=== PATIENT | female | born 1940 | race Caucasian/White ===

== ENCOUNTER 2018-10-08 08:14 | Emergency (ER) | payer MEDICARE, OTHER ==
[~2018-10-08] VITALS: Ht 167.6 cm; Wt 59.1 kg
[~2018-10-08 08:14] MED LIST: ASPI-817 PO; CALC1TAB80 PO; CITA10TA10 PO; LANT3I SC; LISI10TA2 PO; METF100010 PO; TRAM50TA2 PO
[2018-10-08 08:21] VITALS: Ht 167.6 cm; Wt 59.1 kg
[2018-10-08] MEDS ORDERED: BENZ-6 PO (10:00)
[2018-10-08] MEDS ORDERED: AZIT250T13 PO ×2 (10:00)
[2018-10-08 10:14] VITALS: BP 150/65; PULSE 63; RESP 18
--- NOTE | 2018-10-08 16:00 | ERD ---
ER Documentation Chief Complaint Chief Complaint Complains of a sore throat x 3 days HPI 78-year-old female presents with complaint of dry cough x1 week. Patient states to have started with a cough approximately 3 weeks ago, presented with her PCP 2 weeks ago was given a cough syrup which helped some but notes that the cough returned 1 week ago. Patient expresses concern at this time as she has been previously diagnosed with bronchitis and pneumonia last year. She denies any shortness of breath, chest pain, or wheezing. Patient notes a history of diabetes, hypertension, cholesterol. Denies any other chronic medical conditions. No other complaints at this time. ROS All systems reviewed and are negative except as per history of present illness. Medications Home Meds Active Scripts Benzonatate* (Tessalon Perle*) 100 Mg Capsule, 100 MG PO Q8H PRN for COUGH for 7 Days, #30 CAP Prov:ZAK ALVAREZ PA-C 10/08/18 Azithromycin* (Azithromycin*) 250 Mg Tablet, 500 MG PO ONCE, #1 TAB Prov:ZAK ALVAREZ PA-C 10/08/18 Azithromycin* (Azithromycin*) 250 Mg Tablet, 250 MG PO DAILY, #4 TAB Prov:ZAK ALVAREZ PA-C 10/08/18 Tramadol HCl (Tramadol HCl) 50 Mg Tablet, 50 MG PO Q6, #20 TAB Prov:ERI CORDON MD 12/04/15 Reported Medications Insulin Glargine* (Lantus*) 100 Unit/Ml Soln, 0 SC DAILY, #1 VIAL 12/04/15 Metformin Hcl* (Metformin Hcl*) 1,000 Mg Tablet, 1000 MG PO WITH BREAKFAST, #30 TAB 12/04/15 Citalopram Hydrobromide* (Celexa*) 10 Mg Tablet, 10 MG PO DAILY, #30 TAB 12/04/15 Lisinopril* (Lisinopril*) 10 Mg Tablet, 10 MG PO DAILY 03/16/13 Calcium Carbonate/Vitamin D3 (Oysco 500+D Tablet) 1 Tab Tablet, 1 TAB PO DAILY 03/16/13 Aspirin* (Aspirin* EC) 81 Mg Tablet.dr, 81 MG PO DAILY 03/16/13 Allergies Allergies: Coded Allergies: Penicillins (Verified Allergy, Unknown, RASH, 12/04/15) PMhx/Soc History of Surgery: Yes (abd hernia removal and hysterectomy +20 years ago ) Anesthesia Reaction: No Hx Neurological Disorder: No Hx Respiratory Disorders: No Hx Cardiac Disorders: No Hx Psychiatric Problems: No Hx Miscellaneous Medical Probl: Yes (DM type 2 ) Hx Alcohol Use: No Hx Substance Use: No Hx Tobacco Use: No Smoking Status: Never smoker Physical Exam Vitals Vital Signs Date Temp Pulse Resp B/P (MAP) Pulse Ox O2 O2 Flow FiO2 Time Delivery Rate 10/08/18 63 18 150/65 98 Room Air 10:14 (93) 10/08/18 97.8 66 20 165/72 99 08:21 (103) Physical Exam Const: No acute distress Head: Atraumatic Eyes: Normal Conjunctiva ENT: Normal External Ears, Nose and Mouth. Neck: Full range of motion. No meningismus. Resp: Clear to auscultation bilaterally. No wheezes, rales, rhonchi. Speaking full sentences. No accessory muscle use. No reproducible chest wall tenderness Cardio: Regular rate and rhythm, no murmurs. No chest wall tenderness. Skin: No petechiae or rashes Neur: Awake and alert. Moving all 4 extremities. Relating appropriately. Psych: Normal Mood and Affect Procedures/MDM PROCEDURE: XR Chest. FINDINGS: The heart is normal in size. Calcific atherosclerosis of the aorta. No evidence of pulmonary vascular congestion acute lung consolidation pleural effusions or pneumothorax. Interval development of a 5 mm nodular density in the lateral right mid lung demonstrated only on frontal imaging and not fully seen on lateral imaging. Interval follow up is recommended. Minimal dextrorotoscoliosis thoracolumbar spine. IMPRESSION: 1. No evidence of congestive heart failure or pneumonia. 2. Interval development of a 5 mm nodular density lateral right mid lung demonstrated on frontal imaging. An underlying pulmonary nodule should be considered. Recommend follow-up to assess for change. MDM: This is a very pleasant 78yo F who presents to the ED for evaluation of persistent cough. Vitals reviewed by me and pt was afebrile. XR imaging of chest unremarkable for PNA, however, incidental 5mm nodular density found. Counseled pt to follow-up with PCP for follow-up and possible repeat CXR in approx 2-3 months. Given pt non-toxic appearance, stable vitals, and unremarkable exam it was felt pt stable for outpatient management. Pt has a history of PNA previously, although CXR negative, pt has had persistent cough for multiple weeks and abx therapy deemed appropriate at this time. Pt will be discharged with Rx for z-pack and tessalon with close f/u with PCP. Pt counseled regarding ED return precautions and advised to return within 24-48 hours if symptoms persist or worsen despite use of abx and cough medicine. Pt expressed verbal understanding and agreement to treatment plan. All questions addressed and answered. Departure Diagnosis: Primary Impression: Upper respiratory infection Additional Impression: Cough Condition: Stable Patient Instructions: Preventing Common Respiratory Infections, Cough, Chronic, Uncertain Cause, (Adult) ZAK ALVAREZ PA-C October 08, 2018 16:00
== END 2018-10-08 10:15 | disposition home or self-care (01) ==
LOC: FTE 08:14
DX: J06.9 Acute upper respiratory infection, unspecified (principal); E11.9 Type 2 diabetes mellitus without complications; Z79.4 Long term (current) use of insulin; Z79.82 Long term (current) use of aspirin
CPT/HCPCS: 71046

== ENCOUNTER 2019-01-02 16:42 | Emergency (ER) | payer MEDICARE, OTHER ==
[~2019-01-02] VITALS: Ht 160 cm; Wt 59.2 kg
[~2019-01-02 16:42] MED LIST changes: +AZIT250T13 PO; +BENZ-6 PO
[2019-01-02 16:44] VITALS: Ht 160 cm; Wt 59.2 kg
[2019-01-02] MEDS ORDERED: SOD CHLORIDE 0.9% 1,000 ML IV STA (17:48)
--- NOTE | 2019-01-02 18:07 | ERD ---
ER Documentation Chief Complaint Chief Complaint dizziness and nausea, vomit x1 time today HPI Patient has a history of diabetes hypertension. She has been feeling weak since this morning. When she was in a apartment that did not have any AC. There is no triggers to make it worse. No headache. Had one episode of vomiting. Denies any shortness of breath, chest pain, diarrhea or dysuria. ROS All systems reviewed and are negative except as per history of present illness. Medications Home Meds Active Scripts Benzonatate* (Tessalon Perle*) 100 Mg Capsule, 100 MG PO Q8H PRN for COUGH for 7 Days, #30 CAP Prov:ZAK ALVAREZ PA-C 10/08/18 Azithromycin* (Azithromycin*) 250 Mg Tablet, 500 MG PO ONCE, #1 TAB Prov:ZAK ALVAREZ PA-C 10/08/18 Azithromycin* (Azithromycin*) 250 Mg Tablet, 250 MG PO DAILY, #4 TAB Prov:ZAK ALVAREZ PA-C 10/08/18 Tramadol HCl (Tramadol HCl) 50 Mg Tablet, 50 MG PO Q6, #20 TAB Prov:ERI CORDON MD 12/04/15 Reported Medications Insulin Glargine* (Lantus*) 100 Unit/Ml Soln, 0 SC DAILY, #1 VIAL 12/04/15 Metformin Hcl* (Metformin Hcl*) 1,000 Mg Tablet, 1000 MG PO WITH BREAKFAST, #30 TAB 12/04/15 Citalopram Hydrobromide* (Celexa*) 10 Mg Tablet, 10 MG PO DAILY, #30 TAB 12/04/15 Lisinopril* (Lisinopril*) 10 Mg Tablet, 10 MG PO DAILY 03/16/13 Calcium Carbonate/Vitamin D3 (Oysco 500+D Tablet) 1 Tab Tablet, 1 TAB PO DAILY 03/16/13 Aspirin* (Aspirin* EC) 81 Mg Tablet.dr, 81 MG PO DAILY 03/16/13 Allergies Allergies: Coded Allergies: Penicillins (Verified Allergy, Unknown, RASH, 12/04/15) PMhx/Soc History of Surgery: Yes (abd hernia removal and hysterectomy +20 years ago ) Anesthesia Reaction: No Hx Neurological Disorder: No Hx Respiratory Disorders: No Hx Cardiac Disorders: No Hx Psychiatric Problems: No Hx Miscellaneous Medical Probl: Yes (DM type 2 ) Hx Alcohol Use: No Hx Substance Use: No Hx Tobacco Use: No Physical Exam Vitals Vital Signs Date Temp Pulse Resp B/P (MAP) Pulse Ox O2 O2 Flow FiO2 Time Delivery Rate 01/02/19 98.7 84 16 154/57 98 Room Air 17:40 (89) 01/02/19 99.3 75 18 145/65 97 16:44 (91) Physical Exam Const: No acute distress Head: Atraumatic Eyes: Normal Conjunctiva ENT: Normal External Ears, Nose and Mouth. Neck: Full range of motion. No meningismus. Resp: Clear to auscultation bilaterally Cardio: Regular rate and rhythm, no murmurs Abd: Soft, non tender, non distended. Normal bowel sounds Skin: No petechiae or rashes Back: No midline or flank tenderness Ext: No cyanosis, or edema Neuro Exam Mental status: oriented, alert, lucid, cooperative, appropriate Cranial nerves: CN 2-12 intact Motor: 5+ UE and LE, flexors and extensors symmetric Sensation: grossly intact to find touch UE and LE symmetrically Cerebellar: normal FTN bilaterally. No tremor noted Gait: normal gait Tone: normal bulk and tone in upper and lower extremities. No atrophy noted. Psych: Normal Mood and Affect Result Diagram: 01/02/19 1747 01/02/19 1747 Results 24 hrs Laboratory Tests Test 01/02/19 17:47 White Blood Count 8.4 10^3/ul Red Blood Count 4.33 10^6/ul Hemoglobin 12.6 g/dl Hematocrit 38.3 % Mean Corpuscular Volume 88.5 fl Mean Corpuscular Hemoglobin 29.1 pg Mean Corpuscular Hemoglobin Concent 32.9 g/dl Red Cell Distribution Width 12.9 % Platelet Count 224 10^3/UL Mean Platelet Volume 10.3 fl Immature Granulocytes % 0.200 % Neutrophils % 70.3 % Lymphocytes % 21.1 % Monocytes % 6.8 % Eosinophils % 1.0 % Basophils % 0.6 % Nucleated Red Blood Cells % 0.0 /100WBC Immature Granulocytes # 0.020 10^3/ul Neutrophils # 5.9 10^3/ul Lymphocytes # 1.8 10^3/ul Monocytes # 0.6 10^3/ul Eosinophils # 0.1 10^3/ul Basophils # 0.1 10^3/ul Nucleated Red Blood Cells # 0.0 10^3/ul Sodium Level 139 mmol/L Potassium Level 4.3 mmol/L Chloride Level 101 mmol/L Carbon Dioxide Level 30 mmol/L Anion Gap 8 Blood Urea Nitrogen 16 mg/dl Creatinine 0.82 mg/dl Est Glomerular Filtrat Rate mL/min mL/min Glucose Level 225 mg/dl Calcium Level 10.0 mg/dl Troponin I < 0.012 ng/ml Current Medications Medications Dose Sig/Bhargav Start Time Status Last (Trade) Ordered Route PRN Stop Time Admin Dose Reason Admin Sodium 1,000 ml @ Q1H STAT 01/02/19 DC 01/02/19 Chloride 1,000 mls/hr IV 17:48 17:56 01/02/19 18:47 Procedures/MDM ECG Time: 1803 Ventricular Rate: 65 Rhythm: normal sinus rhythm. ST Segments: without evidence of depressions or elevations Intervals: without evidence of AV block, new BBB, long QT, Brugada No evidence of delta wave. Patient presented with feeling of weakness today. Labs unremarkable any acute pathology. Patient feels better after rehydration. Likely component of dehydration fatigue. Low suspicion for ACS, infection, stroke. Patient will be staying with her daughter close follow-up Departure Diagnosis: Primary Impression: Weakness Condition: Stable ERI ADAMS MD Jan 02, 2019 18:07
[2019-01-02 19:41] VITALS: BP 139/59; PULSE 78; RESP 19
== END 2019-01-02 19:46 | disposition home or self-care (01) ==
LOC: E/R 16:42
DX: R53.1 Weakness (principal); I10 Essential (primary) hypertension; E11.9 Type 2 diabetes mellitus without complications; Z79.4 Long term (current) use of insulin; Z79.82 Long term (current) use of aspirin
CPT/HCPCS: 36415; 71045; 80048; 84484; 85025; 93005; 99285; J7030